=== PATIENT | female | born 1995 | race Caucasian/White ===

== ENCOUNTER 2019-08-11 18:23 | Emergency (ER) | payer OTHER ==
[~2019-08-11] VITALS: Ht 165.1 cm; Wt 60.5 kg
[2019-08-11 18:35] VITALS: BP 161/86
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
[2019-08-11] MEDS ORDERED: METHOCARBAMOL 750 MG TABLET ONE (19:12)
[2019-08-11] MEDS ORDERED: KETOROLAC 30 MG/1 ML ONE (19:12)
--- NOTE | 2019-08-11 19:16 | NUR ---
PT MEDICATED PER ORDERS, TO XRAY.
[2019-08-11] MEDS ORDERED: KETOROLAC 30 MG/1 ML IM ONE (19:30)
[2019-08-11] MEDS ORDERED: METHOCARBAMOL 750 MG TABLET PO ONE (19:30)
--- NOTE | 2019-08-11 20:17 | NUR ---
Patient/Caregiver given discharge instructions and they have confirmed that they understand the instructions. Patient ambulatory with steady gait.
== END 2019-08-11 20:49 | disposition home or self-care (01) ==
LOC: ED 20:00
DX: S16.1XXA Strain of muscle, fascia and tendon at neck level, initial encounter (principal); M47.814 Spondylosis without myelopathy or radiculopathy, thoracic region; G89.11 Acute pain due to trauma; V49.40XA Driver injured in collision with unspecified motor vehicles in traffic accident, initial encounter; Y93.89 Activity, other specified; Y92.488 Other paved roadways as the place of occurrence of the external cause; Y99.8 Other external cause status
CPT/HCPCS: 72050; 72072; 96372; 99284; J1885